=== PATIENT | male | born 1990 | race African-American/Black ===

== ENCOUNTER 2019-12-22 11:31 | Emergency (ER) | payer OTHER ==
[~2019-12-22] VITALS: Ht 177.8 cm; Wt 65.8 kg
--- NOTE | 2019-12-22 11:45 | NUR ---
Dr. Rico at bedside for MSE
[2019-12-22] MEDS ORDERED: LEVE500T9 PO (11:58)
[2019-12-22] MEDS ORDERED: ACETAMINOPHEN 650 MG/20.3 ML LIQUID UDC PO ONE (12:00)
[2019-12-22] MEDS ORDERED: IBUPROFEN 600 MG TABLET PO ONE (12:00)
[2019-12-22] MEDS ORDERED: ACETAMINOPHEN 325 MG TABLET ONE (12:12)
[2019-12-22] MEDS ORDERED: IBUPROFEN 600 MG TABLET ONE (12:12)
--- NOTE | 2019-12-22 12:30 | NUR ---
Patient discharged to home in stable condition. Written and verbal after care instructions given. Patient verbalizes understanding of instructions. Stressed follow up or return to ER for worsening s/s. Patient ambulated with steady gait. NAD noted
[2019-12-22 13:00] VITALS: BP 133/71
== END 2019-12-22 12:30 | disposition home or self-care (01) ==
LOC: ER 11:31
DX: S63.501A Unspecified sprain of right wrist, initial encounter (principal); W21.89XA Striking against or struck by other sports equipment, initial encounter; Y93.89 Activity, other specified; Y99.8 Other external cause status; M79.641 Pain in right hand; G40.909 Epilepsy, unspecified, not intractable, without status epilepticus; Z79.899 Other long term (current) drug therapy; Z87.820 Personal history of traumatic brain injury
CPT/HCPCS: 73130; A4663